=== PATIENT | female | born 1980 | race Hispanic/Latino ===

== ENCOUNTER 2016-10-08 07:36 | Emergency (ER) | payer OTHER ==
[2016-10-08 07:52] VITALS: BP 128/76
[2016-10-08] MEDS ORDERED: TORADOL IM ONE (08:34)
--- NOTE | 2016-10-08 09:52 | Emergency Department Report ---
ED Lower Extremity HPI - General Chief Complaint: Extremity Injury, Lower Stated Complaint: WORK ACCIDENT/FOOT PAIN Time Seen by Provider: 10/08/16 09:51 Source: patient Mode of arrival: Ambulatory Limitations: No Limitations - History of Present Illness Initial Comments: She is a 36-year-old female who presents to ED complaining of great toe swelling and pain times today. She says she was at work this morning when she was trying to give report. Patient states she grabbed something off a shelf to shelf fell down and landed on her left great toe. Patient states pain started right away and swelling. Patient describes pain as throbbing in sensation. Patient describes difficulty placing weight on medial aspect of the foot. Patient states she is able to place weight on the lateral aspect of the foot. She denies fevers/chills/nausea/vomiting/headache/dizziness/chest pain/any other problems. - Related Data Home Medications Medication Instructions Recorded Confirmed Last Taken ARIPiprazole [Abilify TAB] 5 mg PO DAILY 10/08/16 10/08/16 Unknown Dextroamphetamine/Amphetamine 30 mg DAILY 10/08/16 10/08/16 Unknown [Adderall XR 30 mg] Levothyroxine [Synthroid] 100 mcg PO QAM 10/08/16 10/08/16 Unknown Venlafaxine [Effexor] 300 mg PO DAILY 10/08/16 10/08/16 Unknown traZODone [Desyrel] 50 mg PO QHS 10/08/16 10/08/16 Unknown Previous Rx's Medication Instructions Recorded Last Taken Type Acetaminophen/Codeine [Tylenol #3] 1 tab PO Q6H PRN #12 tab 10/08/16 Unknown Rx Ibuprofen [Motrin 800 MG tab] 800 mg PO Q8HR PRN #30 tablet 10/08/16 Unknown Rx Allergies Allergy/AdvReac Type Severity Reaction Status Date / Time Penicillins Allergy Unknown Verified 10/08/16 07:45 hydromorphone AdvReac Vomiting Verified 10/08/16 07:45 ED Review of Systems ROS: Stated complaint: WORK ACCIDENT/FOOT PAIN Other details as noted in HPI Constitutional: denies: chills, fever Eyes: denies: eye pain, eye discharge, vision change ENT: denies: ear pain, throat pain Respiratory: denies: cough, shortness of breath, wheezing Cardiovascular: denies: chest pain, palpitations Endocrine: no symptoms reported Gastrointestinal: denies: abdominal pain, nausea, diarrhea Genitourinary: denies: urgency, dysuria, discharge Musculoskeletal: denies: back pain, joint swelling, arthralgia Skin: denies: rash, lesions Neurological: denies: headache, weakness, paresthesias Psychiatric: denies: anxiety, depression Hematological/Lymphatic: denies: easy bleeding, easy bruising ED Past Medical Hx - Past Medical History Previous Medical History?: Yes Hx Psychiatric Treatment: Yes (depression, anxiety) Additional medical history: hypothyroidism - Surgical History Past Surgical History?: Yes Hx Appendectomy: Yes - Social History Smoking Status: Never Smoker Substance Use Type: None - Medications Home Medications: Home Medications Medication Instructions Recorded Confirmed Last Taken Type ARIPiprazole [Abilify TAB] 5 mg PO DAILY 10/08/16 10/08/16 Unknown History Acetaminophen/Codeine [Tylenol #3] 1 tab PO Q6H PRN #12 tab 10/08/16 Unknown Rx Dextroamphetamine/Amphetamine 30 mg DAILY 10/08/16 10/08/16 Unknown History [Adderall XR 30 mg] Ibuprofen [Motrin 800 MG tab] 800 mg PO Q8HR PRN #30 tablet 10/08/16 Unknown Rx Levothyroxine [Synthroid] 100 mcg PO QAM 10/08/16 10/08/16 Unknown History Venlafaxine [Effexor] 300 mg PO DAILY 10/08/16 10/08/16 Unknown History traZODone [Desyrel] 50 mg PO QHS 10/08/16 10/08/16 Unknown History ED Physical Exam - General Limitations: No Limitations General appearance: alert, in no apparent distress - Head Head exam: Present: atraumatic, normocephalic - Eye Eye exam: Present: normal appearance, PERRL, EOMI - ENT ENT exam: Present: mucous membranes moist - Neck Neck exam: Present: normal inspection - Respiratory Respiratory exam: Present: normal lung sounds bilaterally. Absent: respiratory distress, wheezes, rales, rhonchi - Cardiovascular Cardiovascular Exam: Present: regular rate, normal rhythm. Absent: systolic murmur, diastolic murmur, rubs, gallop - GI/Abdominal GI/Abdominal exam: Present: soft, normal bowel sounds - Extremities Exam Extremities exam: Present: normal inspection - Expanded Lower Extremity Exam Left Hip exam: Present: normal inspection, full ROM. Absent: tenderness, swelling Upper Leg exam: Present: normal inspection, full ROM. Absent: tenderness, swelling Knee exam: Present: normal inspection, full ROM. Absent: tenderness, swelling, abrasion Lower Leg exam: Present: normal inspection, full ROM. Absent: tenderness, swelling, abrasion Ankle exam: Present: normal inspection, full ROM. Absent: tenderness, swelling , abrasion Foot/Toe exam: Present: full ROM, tenderness (to palpation of the great toe phalanx), swelling, erythema. Absent: abrasion, laceration, ecchymosis, deformity, dislocation, amputation, puncture wound, foreign body, calcaneal tenderness, tenderness at base of 5th metatarsal Neuro vascular tendon exam: Present: no vascular compromise, abnormal cap refill. Absent: pulse deficit, motor deficit, sensory deficit Gait: Positive: observed and limited by pain, unable to bear weight (on medial aspect of foot. Able to bear weight on lateral aspect of the) - Back Exam Back exam: Present: normal inspection - Neurological Exam Neurological exam: Present: alert, oriented X3 - Psychiatric Psychiatric exam: Present: normal affect, normal mood - Skin Skin exam: Present: warm, dry, intact, normal color. Absent: rash ED Course Vital Signs 10/08/16 07:51 Temperature 98.6 F Pulse Rate 76 Respiratory 12 Rate Blood Pressure 128/76 [Left] O2 Sat by Pulse 97 Oximetry ED Lower Extremity MDM - Medical Decision Making 36-year-old female presents with great toe contusion secondary to object falling on toe. Patient is alert and oriented in no distress. Mild difficulty placing weight on left foot. Discussed the patient postop shoe. Discussed the patient follow-up with instructions as given. Discussed results with patient. X-ray report shows no acute injury dislocation or fractures. Postop shoe administered to patient X-ray impressions left valgus and MTP joint degenerative changes, including chronic problem. Discussed to follow up with primary care physician regarding degenerative changes. Patient states she understands and will follow-up. Critical care attestation.: If time is entered above; I have spent that time in minutes in the direct care of this critically ill patient, excluding procedure time. ED Disposition Clinical Impression: Sprain of great toe, Pain of left great toe, Contusion of great toe of left foot Disposition: DISCHARGED TO HOME OR SELFCARE Is pt being admited?: No Does the pt Need Aspirin: No Condition: Stable Instructions: Arthralgia (ED), Foot Contusion (ED), RICE Therapy (ED) Additional Instructions: Follow-up with your primary-care physician. Follow-up instructions as given and discussed. Prescriptions: Acetaminophen/Codeine [Tylenol #3] 1 tab PO Q6H PRN #12 tab PRN Reason: Pain Ibuprofen [Motrin 800 MG tab] 800 mg PO Q8HR PRN #30 tablet PRN Reason: Pain Forms: Work/School Release Form(ED) Time of Disposition: 11:06
--- NOTE | 2016-10-08 10:49 | XRay Report ---
LEFT FOOT RADIOGRAPHS: INDICATION: Swelling, pain. COMPARISON: None similar. FINDINGS: AP, lateral and oblique left foot radiographs demonstrate [id number] hallux valgus and first MTP joint degenerative narrowing and lateral spurring with somewhat flattened first metatarsal head contour. Slight surrounding soft tissue swelling not excluded. Normal remainder bones without focal suspicious erosions. Approximately 8 mm prominent posterior talar process may be present. CONCLUSION: Left hallux valgus and first MTP joint degenerative changes, as described. Please correlate. Thank you for the opportunity to participate in this patient's care.
== END 2016-10-08 11:32 | disposition home or self-care (01) ==
LOC: ED 07:36 → EEVIPCON 07:36 → ED 11:32
DX: S93.502A Unspecified sprain of left great toe, initial encounter (principal); W23.0XXA Caught, crushed, jammed, or pinched between moving objects, initial encounter; Y93.89 Activity, other specified; Y92.89 Other specified places as the place of occurrence of the external cause; Y99.8 Other external cause status; Z88.0 Allergy status to penicillin; Z88.2 Allergy status to sulfonamides; F32.9 Major depressive disorder, single episode, unspecified; F41.9 Anxiety disorder, unspecified; E03.9 Hypothyroidism, unspecified
CPT/HCPCS: 73630; 99284; J1885

== ENCOUNTER 2016-12-29 11:54 | Outpatient (CLI) | payer BC ==
[2016-12-31 15:51] LABS: Vitamin D, 25-OH, Total 22 ng/mL (30-100)
== END 2016-12-29 11:55 | disposition home or self-care (01) ==
LOC: LAB 11:54
PROVIDERS: ATTEND Psychiatry & Neurology Psychiatry
DX: K90.0 Celiac disease (principal); T78.40XA Allergy, unspecified, initial encounter; E55.9 Vitamin D deficiency, unspecified; E88.81 Metabolic syndrome and other insulin resistance; E03.9 Hypothyroidism, unspecified; D51.3 Other dietary vitamin B12 deficiency anemia; Z79.899 Other long term (current) drug therapy
CPT/HCPCS: 36415; 82306; 83036; 83516; 83525; 84439; 84443; 84481